=== PATIENT | female | born 1960 | race Caucasian/White ===

== ENCOUNTER 2017-10-10 07:57 | Inpatient (IN) | payer OTHER ==
[2017-10-07 10:56] LABS: ALBUMIN 3.8 g/dL (3.4-5.0); ANION GAP 8 mmol/L (5-15); CALCIUM 9.1 mg/dL (8.5-10.1); CHLORIDE 106 mmol/L (98-107)
[2017-10-07 11:00] LABS: ALANINE AMINOTRANSFERASE 55 U/L (12-78); ALKALINE PHOSPHATASE 92 U/L (45-117); BILIRUBIN,TOTAL 0.6 mg/dL (0.2-1.0); CREATININE 0.84 mg/dL (0.55-1.02); TOTAL PROTEIN 7.7 g/dL (6.4-8.2)
[~2017-10-10] VITALS: Ht 165.1 cm; Wt 89.6 kg
[~2017-10-10 07:57] MED LIST: BENA20TA2 PO; CITA20TA5 PO; CLINDAMYCIN 150 MG/ML, 6ML ONE; DICL75TA2 PO; FENTANYL PF 100 MCG/2ML ONE; HYDR25TA6 PO; LEVO50TA5 PO; LIDOCAINE GEL 2%, 5ML ONE; MIDAZOLAM 1 MG/ML, 2ML ONE; OMEP20TA62 PO; TRAM50TA2 PO; TRANEXAMIC ACID 100 MG/ML, 10ML ONE
[2017-10-10] MEDS ORDERED: VANCOMYCIN PER PHARMACY MC ONE (08:02)
[2017-10-10] MEDS ORDERED: DEXAMETHASONE 4 MG/ML, 1ML ONE (08:04)
[2017-10-10] MEDS ORDERED: BUPIVACAINE/PF 0.5% ONE (08:04)
[2017-10-10] MEDS ORDERED: CEFAZOLIN 1,000 MG ONE (08:04)
[2017-10-10] MEDS ORDERED: ONDANSETRON 2MG/ML, 2ML ONE (08:04)
[2017-10-10] MEDS ORDERED: SUCCINYLCHOLINE 20 MG/ML, 10ML ONE (08:04)
[2017-10-10] MEDS ORDERED: GLYCOPYRROLATE 0.2MG/1ML, 5ML ONE (08:04)
[2017-10-10] MEDS ORDERED: NEOSTIGMINE 1 MG/ML, 10ML ONE (08:04)
[2017-10-10] MEDS ORDERED: PROPOFOL 10 MG/ML, 20ML ONE (08:04)
[2017-10-10 08:14] VITALS: BP 132/86
[2017-10-10] MEDS ORDERED: D5%-0.45% NACL 1,000 ML IV SCH (08:20)
[2017-10-10] MEDS ORDERED: LACTATED RINGERS 1,000 ML IV SCH (08:20)
[2017-10-10] MEDS ORDERED: ONDANSETRON 2MG/ML, 2ML IV PRN (08:30)
[2017-10-10] MEDS ORDERED: ACETAMINOPHEN 500 MG TABLET PO ONE (08:30)
[2017-10-10] MEDS ORDERED: morphine SULFATE 10 MG/ML, 1ML IV PRN (08:30)
[2017-10-10] MEDS ORDERED: BISACODYL 10 MG SUPP PR PRN (08:30)
[2017-10-10] MEDS ORDERED: DIPHENHYDRAMINE 25 MG CAPSULE PO PRN (08:30)
[2017-10-10] MEDS ORDERED: LORazepam 2 MG/ML, 1ML IV PRN (08:30)
[2017-10-10] MEDS ORDERED: ONDANSETRON ODT 8 MG PO ONE (08:30)
[2017-10-10] MEDS ORDERED: ZOLPIDEM 5MG TABLET PO PRN (08:30)
[2017-10-10] MEDS ORDERED: GABAPENTIN 300 MG CAPSULE PO ONE (08:30)
[2017-10-10] MEDS ORDERED: SENNA/DOCUSATE TABLET PO PRN (08:30)
[2017-10-10] MEDS ORDERED: ACETAMINOPHEN 325 MG TABLET PO PRN (08:30)
[2017-10-10] MEDS ORDERED: PROMETHAZINE 25 MG/ML, 1ML IM PRN (08:30)
[2017-10-10] MEDS ORDERED: VANCOMYCIN 1,500 MG in SODIUM CHLORIDE 0.9% 250 ML IV ONE (08:35)
[2017-10-10] MEDS ORDERED: OMEPRAZOLE 20 MG CAPSULE.DR PO SCH (09:00)
[2017-10-10] MEDS ORDERED: CITALOPRAM 20 MG TABLET PO SCH (09:00)
[2017-10-10] MEDS ORDERED: PHARMACOKINETIC CONSULTATION MC ONE (09:00)
[2017-10-10] MEDS ORDERED: LEVOTHYROXINE 50 MCG TABLET PO SCH (09:00)
[2017-10-10] MEDS ORDERED: DICLOFENAC SODIUM 75 MG TABLET.DR PO SCH (09:00)
[2017-10-10] MEDS ORDERED: MULTIVITAMINS/MINERALS TABLET PO SCH (09:00)
[2017-10-10] MEDS ORDERED: BENAZEPRIL 20 MG TABLET PO SCH (09:00)
[2017-10-10] MEDS ORDERED: HYDROCHLOROTHIAZIDE 25 MG TABLET PO SCH (09:00)
[2017-10-10] MEDS ORDERED: DOCUSATE 100 MG CAPSULE PO SCH (09:00)
[2017-10-10] MEDS ORDERED: EPHEDRINE 50 MG/ML, 1ML ONE (09:57)
[2017-10-10] MEDS: OXYcodone/APAP 10/325MG TABLET PO SCH ×2 (11:00→14:39)
[2017-10-10] MEDS ORDERED: ROCURONIUM 10 MG/ML,10ML ONE (15:34)
[2017-10-10] MEDS ORDERED: CEFAZOLIN PMX 2GM/50ML 50 ML IVPB SCH (16:00)
== END 2017-10-10 16:26 | disposition home or self-care (01) | DRG 483 ==
LOC: ORIP 07:57 → 4NOR 12:19
PROVIDERS: ADMIT Orthopaedic Surgery; ATTEND Orthopaedic Surgery
PROC: 0LS40ZZ Reposition Left Upper Arm Tendon, Open Approach (ICD-10-PCS; 2017-10-10)
PROC: 0RRK0JZ Replacement of Left Shoulder Joint with Synthetic Substitute, Open Approach (ICD-10-PCS; principal; 2017-10-10 10:00)
DX: M19.012 Primary osteoarthritis, left shoulder (principal); M75.22 Bicipital tendinitis, left shoulder; J45.909 Unspecified asthma, uncomplicated; I10 Essential (primary) hypertension; Z96.653 Presence of artificial knee joint, bilateral; Z90.710 Acquired absence of both cervix and uterus
CPT/HCPCS: 36415; 80053; C1713; C1776; J0690; J1100; J2250; J2405; J2704; J2710; J3010; J3370; J3490; Q0162; J0330; J7050